=== PATIENT | female | born 1970 | race Caucasian/White ===

== ENCOUNTER → 2016-11-06 | Outpatient (CLI) | payer OTHER ==
[~2016-11-06] MED LIST: CARBIDOPA/LEVO1 EACH PO; CONCERTA54 MG PO; CYMBALTA20 MG PO; CYMBALTA60 MG PO; DULOXETINE HCL40 MG PO; FOLIC ACID1 MG PO; LEVAQUIN750 MG PO; METHYLPHENIDATE54 MG PO; PSORIASIS TP; ROPINIROLE HCL0.5 MG PO; THERAGRAN1 TABLET PO; VITAMIN B-1100 MG PO; VITAMIN B12 100MCG PO; XARELTO15 MG PO; XARELTO20 MG PO
== END | disposition home or self-care (01) ==
LOC: RAD 14:48
DX: S82.61XG Displaced fracture of lateral malleolus of right fibula, subsequent encounter for closed fracture with delayed healing (principal); S82.51XD Displaced fracture of medial malleolus of right tibia, subsequent encounter for closed fracture with routine healing; M25.571 Pain in right ankle and joints of right foot
CPT/HCPCS: 73700

== ENCOUNTER 2016-12-29 05:32 | Day surgery (SDC) | payer OTHER ==
[~2016-12-29] VITALS: Ht 165.1 cm; Wt 67.1 kg
[~2016-12-29 05:32] MED LIST changes: +NAPROSYN500 MG PO
[2016-12-29 06:02] VITALS: BP 103/54
[2016-12-29 10:10] VITALS: BP 102/58
[2016-12-29 10:55] VITALS: BP 100/62
[2017-01-01 12:42] LABS: INTERNAL CONTROL VALID? YES
== END 2016-12-29 11:00 | disposition home or self-care (01) ==
LOC: SDC 05:32
PROVIDERS: Podiatrist Foot & Ankle Surgery
PROC: 0QSG04Z Reposition Right Tibia with Internal Fixation Device, Open Approach (ICD-10-PCS; principal; 2016-12-29)
DX: S82.51XA Displaced fracture of medial malleolus of right tibia, initial encounter for closed fracture (principal); Z91.19 Patient's noncompliance with other medical treatment and regimen; W19.XXXS Unspecified fall, sequela; Z86.718 Personal history of other venous thrombosis and embolism
CPT/HCPCS: 73600; 76000; 84703; C1713; J0690; J1100; J1885; J2250; J2405; J3010; S0020